=== PATIENT | female | born 1985 | race Two or more races ===

== ENCOUNTER 2020-02-15 16:14 | Emergency (ER) | payer MEDICAID, OTHER ==
[~2020-02-15] VITALS: Ht 154.9 cm; Wt 83.9 kg
[2020-02-15 16:48] LABS: Basophils # (auto) 0.1 10 ^3/uL (0-0.2); Basophils % (auto) 0.7 % (0.0-2.0); Eosinophils # (auto) 0.3 10 ^3/uL (0-0.8); Eosinophils % (auto) 3.1 % (0.0-7.0); Hematocrit 42.7 % (36.0-46.0); Hemoglobin 14.5 g/dL (12.2-16.2); Lymphocytes % (auto) 21.1 % (10.0-50.0); Mean Corpuscular Hemoglobin 32.6 pg (28.0-32.0); Mean Corpuscular Volume 95.9 fL (80.0-100.0); Monocytes # (auto) 0.9 10 ^3/uL (0-1.3); Monocytes % (auto) 9.3 % (0.0-12.0); Neutrophils # (auto) 6.3 10 ^3/uL (1.6-8.6); Neutrophils % (auto) 65.8 % (37.0-80.0); Nucleated Red Blood Cells % 0.1 %; Platelet Count (auto) 339 10^3/uL (140-450); Red Blood Cells 4.45 10^6/uL (4.0-5.20); Red Cell Distribution Width 13.4 % (11.8-14.3); White Blood Cell 9.6 10^3/uL (4.4-10.8)
[2020-02-15 17:05] LABS: Albumin 3.5 g/dL (3.4-5.0); BUN/Creatinine Ratio 14.9; Calcium 8.8 mg/dL (8.5-10.1); Magnesium 2.1 mg/dL (1.6-2.6); Potassium 3.8 mmol/L (3.5-5.1)
[2020-02-15 17:08] LABS: Bilirubin, Total 0.4 mg/dL (0.2-1.0); Total Protein 7.8 g/dL (6.4-8.2)
[2020-02-15 19:19] LABS: Urine Bacteria NONE SEEN /hpf (None Seen); Urine Blood Negative /uL (Negative); Urine Mucus FEW (None Seen); Urine Specific Gravity 1.029 (1.001-1.035); Urine WBC 2 /hpf (0 - 5)
[2020-02-15 19:39] VITALS: BP 120/66
== END 2020-02-15 20:07 | disposition home or self-care (01) ==
LOC: ER 16:14
DX: O26.891 Other specified pregnancy related conditions, first trimester (principal); R10.9 Unspecified abdominal pain; Z3A.01 Less than 8 weeks gestation of pregnancy
CPT/HCPCS: 36415; 76801; 76817; 80053; 81001; 82150; 83690; 83735; 84702; 85025

== ENCOUNTER 2020-03-30 18:37 | Emergency (ER) | payer MEDICAID ==
[~2020-03-30] VITALS: Ht 154.9 cm; Wt 83.5 kg
[2020-03-30 18:51] VITALS: BP 115/75
[2020-03-30 19:40] LABS: Basophils # (auto) 0.1 10 ^3/uL (0-0.2); Basophils % (auto) 0.7 % (0.0-2.0); Eosinophils # (auto) 0.1 10 ^3/uL (0-0.8); Eosinophils % (auto) 1.1 % (0.0-7.0); Hematocrit 42.2 % (36.0-46.0); Hemoglobin 14.5 g/dL (12.2-16.2); Lymphocytes # (auto) 1.9 10 ^3/uL (0.4-5.4); Lymphocytes % (auto) 22.1 % (10.0-50.0); Mean Corpuscular Hemoglobin 32.7 pg (28.0-32.0); Mean Corpuscular Hgb Conc. 34.3 g/dL (32.0-36.0); Mean Corpuscular Volume 95.3 fL (80.0-100.0); Monocytes # (auto) 0.8 10 ^3/uL (0-1.3); Monocytes % (auto) 8.6 % (0.0-12.0); Neutrophils # (auto) 5.9 10 ^3/uL (1.6-8.6); Neutrophils % (auto) 67.5 % (37.0-80.0); Nucleated Red Blood Cells % 0.1 %; Platelet Count (auto) 272 10^3/uL (140-450); Red Blood Cells 4.43 10^6/uL (4.0-5.20); Red Cell Distribution Width 12.5 % (11.8-14.3); White Blood Cell 8.8 10^3/uL (4.4-10.8)
[2020-03-30 19:56] LABS: Albumin 2.9 g/dL (3.4-5.0); Calcium 8.8 mg/dL (8.5-10.1); Potassium 3.3 mmol/L (3.5-5.1)
[2020-03-30 19:59] LABS: BUN/Creatinine Ratio 12.9; Bilirubin, Total 0.2 mg/dL (0.2-1.0); Total Protein 7.1 g/dL (6.4-8.2)
[2020-03-30 21:12] LABS: Urine Bacteria NONE SEEN /hpf (None Seen); Urine Blood TRACE /uL (Negative); Urine Mucus FEW (None Seen); Urine Specific Gravity 1.023 (1.001-1.035); Urine WBC 3 /hpf (0 - 5)
== END 2020-03-31 00:13 | disposition left against medical advice (07) ==
LOC: ER 18:37
DX: O46.90 Antepartum hemorrhage, unspecified, unspecified trimester (principal); Z53.21 Procedure and treatment not carried out due to patient leaving prior to being seen by health care provider
CPT/HCPCS: 36415; 80053; 81001; 84702; 85025

== ENCOUNTER 2020-03-31 13:16 | Emergency (ER) | payer MEDICAID ==
[~2020-03-31] VITALS: Ht 154.9 cm; Wt 83.5 kg
[2020-03-31 13:32] VITALS: BP 119/74
== END 2020-03-31 15:32 | disposition home or self-care (01) ==
LOC: ER 13:16
DX: O20.0 Threatened abortion (principal); Z3A.11 11 weeks gestation of pregnancy
CPT/HCPCS: 76801

== ENCOUNTER 2020-09-09 20:28 | Observation (INO) | payer MEDICAID ==
[2020-09-09] MEDS ORDERED: diphenhdrAMINE HCL 25 MG CAP PO ONE (22:00)
[2020-09-09 22:46] LABS: Urine Bacteria NONE SEEN /hpf (None Seen); Urine Blood Negative /uL (Negative); Urine Specific Gravity 1.024 (1.001-1.035); Urine WBC 16 /hpf (0 - 5)
[2020-09-09 22:56] LABS: Alcohol, Urine < 3.0 mg/dL (0-10); Amphetamine Screen, Urine NEGATIVE (NEGATIVE); Barbiturate Scree,Urine NEGATIVE (NEGATIVE); Benzodiazephine Screen, Urine NEGATIVE (NEGATIVE); Cannabinoid Screen, Urine NEGATIVE (NEGATIVE); Cocaine Screen, Urine NEGATIVE (NEGATIVE); Opiate Scree,Urine NEGATIVE (NEGATIVE); Phencyclidine Screen, Urine NEGATIVE (NEGATIVE)
== END 2020-09-10 | disposition home or self-care (01) ==
LOC: LDRP 20:28
PROVIDERS: ADMIT Obstetrics & Gynecology; ATTEND Obstetrics & Gynecology
DX: O26.893 Other specified pregnancy related conditions, third trimester (principal); R07.89 Other chest pain; Z20.828 Contact with and (suspected) exposure to other viral communicable diseases; O99.891 Other specified diseases and conditions complicating pregnancy; M54.6 Pain in thoracic spine; R51.9 Headache, unspecified; R42 Dizziness and giddiness; R20.0 Anesthesia of skin; R82.998 Other abnormal findings in urine; O99.343 Other mental disorders complicating pregnancy, third trimester; F41.9 Anxiety disorder, unspecified; O09.523 Supervision of elderly multigravida, third trimester; Z3A.34 34 weeks gestation of pregnancy
CPT/HCPCS: 36415; 59025; 76805; 80307; 81001; 81002; 82962; 87426; 94760; G0378; U0003

== ENCOUNTER 2020-09-19 15:55 | Observation (INO) | payer MEDICAID ==
[2020-09-19 16:55] LABS: Urine Bacteria FEW /hpf (None Seen); Urine Blood Negative /uL (Negative); Urine Mucus FEW (None Seen); Urine Specific Gravity 1.031 (1.001-1.035); Urine WBC 26 /hpf (0 - 5)
[2020-09-19 17:09] LABS: Amphetamine Screen, Urine NEGATIVE (NEGATIVE); Barbiturate Scree,Urine NEGATIVE (NEGATIVE); Benzodiazephine Screen, Urine NEGATIVE (NEGATIVE); Cannabinoid Screen, Urine NEGATIVE (NEGATIVE); Cocaine Screen, Urine NEGATIVE (NEGATIVE); Opiate Scree,Urine NEGATIVE (NEGATIVE); Phencyclidine Screen, Urine NEGATIVE (NEGATIVE)
[2020-09-19 17:20] LABS: Basophils # (auto) 0 10 ^3/uL (0-0.2); Basophils % (auto) 0.3 % (0.0-2.0); Eosinophils # (auto) 0.1 10 ^3/uL (0-0.8); Eosinophils % (auto) 0.7 % (0.0-7.0); Hematocrit 38.2 % (36.0-46.0); Hemoglobin 13.1 g/dL (12.2-16.2); Lymphocytes # (auto) 1.8 10 ^3/uL (0.4-5.4); Lymphocytes % (auto) 17.8 % (10.0-50.0); Mean Corpuscular Hemoglobin 30.1 pg (28.0-32.0); Mean Corpuscular Hgb Conc. 34.2 g/dL (32.0-36.0); Mean Corpuscular Volume 87.9 fL (80.0-100.0); Monocytes # (auto) 0.9 10 ^3/uL (0-1.3); Monocytes % (auto) 8.9 % (0.0-12.0); Neutrophils # (auto) 7.4 10 ^3/uL (1.6-8.6); Neutrophils % (auto) 72.3 % (37.0-80.0); Nucleated Red Blood Cells % 0.1 %; Platelet Count (auto) 266 10^3/uL (140-450); Red Blood Cells 4.34 10^6/uL (4.0-5.20); White Blood Cell 10.2 10^3/uL (4.4-10.8)
[2020-09-19] MEDS ORDERED: PREN-96 PO (17:29)
[2020-09-19 17:34] LABS: INR 0.95 (0.9-1.15); Partial Thromboplastin Time 23.8 sec (23.0-31.2)
[2020-09-19 17:37] LABS: Albumin 2.5 g/dL (3.4-5.0); Potassium 4.2 mmol/L (3.5-5.1)
[2020-09-19 17:40] LABS: Bilirubin, Total 0.2 mg/dL (0.2-1.0); Total Protein 7.3 g/dL (6.4-8.2); Uric Acid 4.1 mg/dL (2.6-6.0)
== END 2020-09-19 19:30 | disposition home or self-care (01) ==
LOC: LDRP 15:55
PROVIDERS: ADMIT Obstetrics & Gynecology; ATTEND Obstetrics & Gynecology
DX: O13.3 Gestational [pregnancy-induced] hypertension without significant proteinuria, third trimester (principal); Z3A.36 36 weeks gestation of pregnancy; Z79.899 Other long term (current) drug therapy
CPT/HCPCS: 36415; 59025; 76818; 80053; 80307; 81001; 81002; 83036; 84550; 85025; 85610; 85730; 86592; G0378

== ENCOUNTER 2020-09-21 11:55 | Observation (INO) | payer MEDICAID ==
[~2020-09-21] VITALS: Ht 154.9 cm; Wt 88.5 kg
[~2020-09-21 11:55] MED LIST: PREN-96 PO
[2020-09-21 13:32] LABS: Protein, Urine 25.5 mg/dL (0.0-11.9)
[2020-09-21 13:36] LABS: Protein, Urine 25.4 mg/dL (0.0-11.9)
[2020-09-21 13:52] LABS: 24 Hr. Total Protein, Urine 395.2 mg/24 Hr (<149.1)
[2020-09-21] MEDS ORDERED: LABE100T4 PO (14:12)
== END 2020-09-21 14:15 | disposition home or self-care (01) ==
LOC: LDRP 11:55
PROVIDERS: ADMIT Obstetrics & Gynecology; ATTEND Obstetrics & Gynecology
DX: O13.3 Gestational [pregnancy-induced] hypertension without significant proteinuria, third trimester (principal); Z3A.36 36 weeks gestation of pregnancy
CPT/HCPCS: 59025; 76818; 81002; 82570; 84156; G0378

== ENCOUNTER 2020-09-26 13:55 | Observation (INO) | payer MEDICAID ==
[~2020-09-26 13:55] MED LIST changes: +LABE100T4 PO
[2020-09-26] MEDS ORDERED: HYDR-4924 PO (14:49)
== END 2020-09-26 17:15 | disposition home or self-care (01) ==
LOC: LDRP 13:55
PROVIDERS: ADMIT Specialist; ATTEND Specialist
DX: O13.3 Gestational [pregnancy-induced] hypertension without significant proteinuria, third trimester (principal); O34.63 Maternal care for abnormality of vagina, third trimester; N89.8 Other specified noninflammatory disorders of vagina; O26.893 Other specified pregnancy related conditions, third trimester; R51.9 Headache, unspecified; Z3A.37 37 weeks gestation of pregnancy
CPT/HCPCS: 59025; 76818; 81002; G0378

== ENCOUNTER 2020-09-29 13:39 | Observation (INO) | payer MEDICAID ==
[~2020-09-29 13:39] MED LIST changes: +HYDR-4924 PO
== END 2020-09-29 17:56 | disposition home or self-care (01) ==
LOC: OB 13:39 → LDRP 16:20
PROVIDERS: ADMIT Obstetrics & Gynecology; ATTEND Obstetrics & Gynecology
DX: O32.1XX0 Maternal care for breech presentation, not applicable or unspecified (principal); O62.9 Abnormality of forces of labor, unspecified; O24.419 Gestational diabetes mellitus in pregnancy, unspecified control; O13.3 Gestational [pregnancy-induced] hypertension without significant proteinuria, third trimester; Z3A.37 37 weeks gestation of pregnancy; Z91.19 Patient's noncompliance with other medical treatment and regimen
CPT/HCPCS: 59025; 76805; 76818; 81002; 82948; 82962; G0378

== ENCOUNTER 2020-10-03 13:20 | Observation (INO) | payer MEDICAID | END 2020-10-03 15:05 | disposition home or self-care (01) | LOC: LDRP 13:20 | PROVIDERS: ADMIT Obstetrics & Gynecology; ATTEND Obstetrics & Gynecology | DX: O13.3 Gestational [pregnancy-induced] hypertension without significant proteinuria, third trimester (principal); O24.913 Unspecified diabetes mellitus in pregnancy, third trimester; E11.9 Type 2 diabetes mellitus without complications; Z91.19 Patient's noncompliance with other medical treatment and regimen; Z3A.38 38 weeks gestation of pregnancy | CPT/HCPCS: 59025; 76818; 81002; 82948; 82962; G0378 ==

== ENCOUNTER 2020-10-06 10:57 | Observation (INO) | payer MEDICAID | END 2020-10-06 14:18 | disposition home or self-care (01) | LOC: LDRP 10:57 | PROVIDERS: ADMIT Obstetrics & Gynecology; ATTEND Obstetrics & Gynecology | DX: O13.9 Gestational [pregnancy-induced] hypertension without significant proteinuria, unspecified trimester (principal); O26.893 Other specified pregnancy related conditions, third trimester; R42 Dizziness and giddiness; Z3A.38 38 weeks gestation of pregnancy | CPT/HCPCS: 59025; 76818; 81002; 82948; 82962; G0378 ==

== ENCOUNTER 2021-06-18 16:54 | Emergency (ER) | payer MEDICAID ==
[~2021-06-18] VITALS: Ht 154.9 cm; Wt 88.9 kg
[2021-06-18 20:00] VITALS: BP 123/79
== END 2021-06-18 20:12 | disposition home or self-care (01) ==
LOC: ER 16:54
DX: O23.42 Unspecified infection of urinary tract in pregnancy, second trimester (principal); N39.0 Urinary tract infection, site not specified; R05.9 Cough, unspecified; R09.81 Nasal congestion; R53.83 Other fatigue; M79.18 Myalgia, other site; R50.9 Fever, unspecified; J02.9 Acute pharyngitis, unspecified; F41.9 Anxiety disorder, unspecified; F32.9 Major depressive disorder, single episode, unspecified; Z3A.18 18 weeks gestation of pregnancy; Z79.899 Other long term (current) drug therapy

== ENCOUNTER 2021-08-07 20:48 | Emergency (ER) | payer MEDICAID ==
[~2021-08-07] VITALS: Ht 154.9 cm; Wt 91.2 kg
[2021-08-07 20:59] VITALS: BP 117/79
== END 2021-08-08 01:31 | disposition left against medical advice (07) ==
LOC: ER 20:50
DX: R05.9 Cough, unspecified (principal); Z53.21 Procedure and treatment not carried out due to patient leaving prior to being seen by health care provider; Z90.49 Acquired absence of other specified parts of digestive tract
CPT/HCPCS: 36415; 87426

== ENCOUNTER 2021-08-11 14:30 | Emergency (ER) | payer MEDICAID ==
[~2021-08-11] VITALS: Ht 154.9 cm; Wt 89.8 kg
[2021-08-11 15:09] VITALS: BP 128/80
== END 2021-08-11 15:20 | disposition home or self-care (01) ==
LOC: ER 14:30
DX: O26.892 Other specified pregnancy related conditions, second trimester (principal); J20.9 Acute bronchitis, unspecified; J01.90 Acute sinusitis, unspecified; Z3A.26 26 weeks gestation of pregnancy

== ENCOUNTER 2021-09-19 15:36 | Observation (INO) | payer MEDICAID | END 2021-09-19 19:42 | disposition home or self-care (01) | LOC: LDRP 15:36 | PROVIDERS: ADMIT Obstetrics & Gynecology; ATTEND Obstetrics & Gynecology | DX: O26.893 Other specified pregnancy related conditions, third trimester (principal); R10.32 Left lower quadrant pain; R51.9 Headache, unspecified; O24.419 Gestational diabetes mellitus in pregnancy, unspecified control; O36.8130 Decreased fetal movements, third trimester, not applicable or unspecified; Z3A.31 31 weeks gestation of pregnancy | CPT/HCPCS: 59025; 81002; 82948; 82962; 94760; G0378 ==

== ENCOUNTER 2023-07-15 09:57 | Emergency (ER) | payer MEDICAID ==
[~2023-07-15] VITALS: Ht 157.5 cm; Wt 69.7 kg
[~2023-07-15 09:57] MED LIST changes: +CIPR-173 PO; +PANT40TA2 PO
[2023-07-15 10:40] LABS: Basophils # (auto) 0 10 ^3/uL (0-0.2); Basophils % (auto) 0.3 % (0.0-2.0); Eosinophils # (auto) 0.1 10 ^3/uL (0-0.8); Eosinophils % (auto) 0.8 % (0.0-7.0); Hematocrit 43.6 % (36.0-46.0); Lymphocytes # (auto) 1.6 10 ^3/uL (0.4-5.4); Mean Corpuscular Hemoglobin 32.9 pg (28.0-32.0); Mean Corpuscular Hgb Conc. 34.4 g/dL (32.0-36.0); Mean Corpuscular Volume 95.8 fL (80.0-100.0); Monocytes # (auto) 0.6 10 ^3/uL (0-1.3); Monocytes % (auto) 6.2 % (0.0-12.0); Neutrophils # (auto) 6.9 10 ^3/uL (1.6-8.6); Neutrophils % (auto) 75.7 % (37.0-80.0); Nucleated Red Blood Cells % 0.1 %; Red Blood Cells 4.55 10^6/uL (4.0-5.20); Red Cell Distribution Width 12.6 % (11.8-14.3); White Blood Cell 9.2 10^3/uL (4.4-10.8)
[2023-07-15 10:48] LABS: Urine Bacteria NONE SEEN /hpf (None Seen); Urine Blood 1+ /uL (Negative); Urine Clarity Clear (Clear); Urine Color Yellow (Yellow); Urine Hyaline Cast FEW /lpf (0 - 2); Urine Mucus FEW (None Seen); Urine Protein, UAD TRACE (Negative); Urine Specific Gravity 1.036 (1.001-1.035); Urine WBC 4 /hpf (0 - 5); Urine pH 5.5 (5.0-8.0)
[2023-07-15 11:29] LABS: Alanine Aminotransferase 309 U/L (7-40); Albumin 4.3 g/dL (3.2-4.8); Alkaline Phosphatase 194 U/L (46-116); Anion Gap 8 (5-15); Aspartate Aminotransferase 253 U/L (13-40); BUN/Creatinine Ratio 11.3 (10.0-20.0); Blood Urea Nitrogen 8 mg/dL (9-23); Calcium 9.3 mg/dL (8.5-10.1); Carbon Dioxide 25 mmol/L (20-30); Chloride 105 mmol/L (98-107); Glucose 120 mg/dL (74-106); Potassium 3.4 mmol/L (3.5-5.1); Sodium 138 mmol/L (136-145); Total Protein 7.1 g/dL (5.7-8.2)
[2023-07-15 16:07] LABS: Lipase 1043 U/L (12-53)
[2023-07-15 16:39] LABS: Amylase 591 U/L (30-118)
[2023-07-15] MEDS ORDERED: fentaNYL CITRATE 100 MCG/2 ML VL IV ONE (22:15)
[2023-07-15] MEDS ORDERED: ONDANSETRON HCL 4 MG/2 ML VIAL IV ONE (22:15)
[2023-07-15 23:00] VITALS: PULSE 76; RESP 20; O2SAT 97
[2023-07-16 02:05] VITALS: TEMP 98.3; O2SAT 97
[2023-07-16 02:14] VITALS: BP 117/72; PULSE 76; RESP 18
[2023-07-16] MEDS ORDERED: fentaNYL CITRATE 100 MCG/2 ML VL IV ONE (02:15)
[2023-07-16] MEDS ORDERED: ONDANSETRON HCL 4 MG/2 ML VIAL IV ONE (02:15)
== END 2023-07-16 02:30 | disposition short-term general hospital (02) ==
LOC: ER 09:57
DX: K82.8 Other specified diseases of gallbladder (principal); F41.9 Anxiety disorder, unspecified; F32.9 Major depressive disorder, single episode, unspecified; Z79.899 Other long term (current) drug therapy
CPT/HCPCS: 36415; 71045; 74181; 76705; 80053; 81001; 82150; 83690; 85025; 96374; 96375; 96376; 99285; J2405; J3010

== ENCOUNTER 2024-04-07 12:51 | Emergency (ER) | payer BC, MEDICAID ==
[~2024-04-07] VITALS: Ht 154.9 cm; Wt 67.9 kg
[~2024-04-07 12:51] MED LIST changes: -LABE100T4 PO; +LABE100T7 PO
[2024-04-07 13:38] VITALS: BP 126/78; PULSE 87; RESP 16; TEMP 98.7; O2SAT 97
[2024-04-07 14:17] LABS: COVID19 ANTIGEN SOFIA FIA POSITIVE (NEGATIVE)
[2024-04-07] MEDS: KETOROLAC TROMETH 30 MG/ML 1ML VIAL IM ONE (14:27)
[2024-04-07] MEDS: DexAMETHasone SOD PHOS 10MG/1ML VIAL INJ IM ONE (14:28)
[2024-04-07] MEDS ORDERED: IBUP-1454 PO (14:45)
[2024-04-07] MEDS ORDERED: ACET500T58 PO (14:45)
== END 2024-04-07 14:52 | disposition home or self-care (01) ==
LOC: ER 12:51
DX: U07.1 COVID-19 (principal)
CPT/HCPCS: 36415; 87426; 96372; 99284; J1100; J1885

== ENCOUNTER 2024-04-21 17:54 | Emergency (ER) | payer BC, MEDICAID ==
[~2024-04-21] VITALS: Ht 157.5 cm; Wt 68.1 kg
[~2024-04-21 17:54] MED LIST changes: +ACET500T58 PO; +IBUP-1454 PO
[2024-04-21 17:56] VITALS: BP 135/94; RESP 18; O2SAT 100
[2024-04-21 18:08] VITALS: PULSE 69
[2024-04-21] MEDS ORDERED: SODIUM CHLORIDE 0.9% 1,000 ML IV ONE (18:15)
[2024-04-21] MEDS ORDERED: ACETAMINOPHEN 325 MG TAB PO ONE (18:15)
[2024-04-21] MEDS ORDERED: METOCLOPRAMIDE HCL 5MG/ml INJ 2ml VIAL IV ONE (18:15)
[2024-04-21] MEDS ORDERED: KETOROLAC TROMETH 30 MG/ML 1ML VIAL IV ONE (18:15)
== END 2024-04-22 02:35 | disposition home or self-care (01) ==
LOC: ER 17:54 → EDBD 17:54 → ER 04-22 02:35
DX: G43.909 Migraine, unspecified, not intractable, without status migrainosus (principal); B34.9 Viral infection, unspecified; E11.9 Type 2 diabetes mellitus without complications; I10 Essential (primary) hypertension
CPT/HCPCS: 71046; 93005

== ENCOUNTER 2024-11-21 19:00 | Emergency (ER) | payer BC, MEDICAID ==
[~2024-11-21] VITALS: Ht 157.5 cm; Wt 75.9 kg
[2024-11-21] MEDS: HYDROcodone-ACET 10/325MG TAB PO ONE (21:05)
[2024-11-21] MEDS: KETOROLAC TROMETH 60MG/2ML VIAL IM ONE (21:06)
--- NOTE | 2024-11-21 21:50 | DVH ---
EXAMINATIONS: 3 views of the left knee CLINICAL HISTORY: Trauma/twist COMPARISON: None Findings and impression: Questionable small suprapatellar effusion which may be projectional. Otherwise no grossly displaced fractures, dislocations or bony destructive changes are evident on the provided views. If symptoms persist, follow-up MRI may be considered to further evaluate.
[2024-11-21 21:57] VITALS: BP 116/78; PULSE 73; RESP 18; TEMP 98.8; O2SAT 99
[2024-11-21] MEDS ORDERED: IBUP-1455 PO (22:15)
[2024-11-21] MEDS ORDERED: HYDR-4902 PO (22:15)
--- NOTE | 2024-11-21 22:16 | ED.PDOC ---
Musculoskeletal HPI Comments This patient is a 39-year-old female who arrives the ED today for evaluation of left knee pain concerns that have become significant since yesterday. Patient states it a week ago she twisted her left knee. Subsequent to that event, patient was able to ambulate with just some mild discomfort. Patient states last night she was drinking excessively when she twisted her left knee again. This time, the patient states she heard a pop. Patient has difficulty bearing weight. Patient denies any fever nausea or vomiting. Vital signs were stable on arrival. Chief Complaint: Lower Extremity Time Seen by MD: 20:19 Primary Care Provider: UNKNOWN Reviewed Notes: Nurses Notes Allergies: Coded Allergies: NO KNOWN ALLERGIES (Unverified , 02/15/20) Home Meds Active Scripts Acetaminophen (Acetaminophen) 500 Mg Tab, 500 MG PO QIDPRN for 10 Days, #40 TAB 0 Refills Prov:SIMONE TIERNEY NP 04/07/24 Ibuprofen (Ibuprofen) 600 Mg Tab, 1 TAB PO TID for 10 Days, #30 TAB 0 Refills Prov:SIMONE TIERNEY NP 04/07/24 Ciprofloxacin Hcl (Cipro) 500 Mg Tab, 1 TAB PO BID, #14 TAB Prov:CONOR RENDON MD 02/28/23 Pantoprazole Sodium Sesquihydr (Protonix) 40 Mg Tab, 40 MG PO DAILY, #30 TAB Prov:CONOR RENDON MD 02/28/23 Reported Medications Hydroxyzine HCl (Hydroxyzine Hydrochloride) 25 Mg Tab, 25 MG PO BID PRN for ANXIETY, TAB 09/26/20 Labetalol Hcl (Labetalol Hcl) 100 Mg Tab, 1 TAB PO BID, #60 TAB 3 Refills 09/21/20 Vit W/ Ferrous Fumara ( One Daily) Daily Tab, 1 TAB PO DAILY, #90 TAB 3 Refills 09/19/20 Information Source: Patient Mode of Arrival: Ambulatory Location: Left Extremity Location: Knee Timing: Days Prehospital treatment: None Severity: Moderate Able to Move Extremity: Yes Bear Weight: Limited Pain: Moderate Hand Dominance: Right Mechanism: Twisting Circumstances: Accident Onset of Symptoms: After Trauma Symptoms: Swelling, Pain DVT Risk Factors: NONE Past Medical History PAST MEDICAL HISTORY: Anxiety, Depression, DM, HTN Surgical History: Denies all surgeries NURSE PRACTITIONER HOSPITALIST History: No Pertinent NURSE PRACTITIONER HOSPITALIST History Family History Family History: Reviewed,noncontributory to illness, No family hx of Cancer, No family hx of DM, No family hx of Heart zaynab, No family hx of HTN, No family hx ofKidney zaynab, No family hx of Liver zaynab, No family hx of Lung zaynab, No family hx of Stroke Social History Smoker: Non-Smoker Alcohol: Heavy Drugs: Denies Drug Use Lives In: Home Constitutional: denies: chills, diaphoresis, fatigue, fever, malaise, sweats, weakness, others EENTM: denies: blurred vision, double vision, ear bleeding, ear discharge, ear drainage, ear pain, ear ringing, eye pain, eye redness, hearing loss, mouth pain, mouth swelling, nasal discharge, nose bleeding, nose congestion, nose pain, photophobia, tearing, throat pain, throat swelling, voice changes, others Respiratory: denies: cough, hemoptysis, orthopnea, SOB at rest, shortness of breath, SOB with excertion, stridor, wheezing, others Cardiovascular: denies: chest pain, dizzy spells, diaphoresis, Dyspnea on exertion, edema, irregular heart beat, left arm pain, lightheadedness, palpitations, PND, syncope, others Gastrointestinal: denies: abdomen distended, abdominal pain, blood streaked bowels, constipated, diarrhea, dysphagia, difficulty swallowing, hematemesis, melena, nausea, poor appetite, poor fluid intake, rectal bleeding, rectal pain, vomiting, others Genitourinary: denies: abnormal vagina bleeding, burning, dyspareunia, dysuria, flank pain, frequency, hematuria, incontinence, pain, , vagina discharge, urgency, others Neurological: denies: dizziness, fainting, headache, left sided numbness, left sided weakness, numbness, paresthesia, pre-existing deficit, right sided numbness, right sided weakness, seizure, speech problems, tingling, tremors, weakness, others Musculoskeletal: reports: others (Left knee pain); denies: back pain, gout, joint pain, joint swelling, muscle pain, muscle stiffness, neck pain Integumetry: denies: bruises, change in color, change in hair/nails, dryness, laceration, lesions, lumps, rash, wounds, others Allergic/Immunocompromised: denies: Difficulty Healing, Frequent Infections, Hives, Itching, others Hematologic/Lymphatic: denies: anemia, blood clots, easy bleeding, easy bruising, swollen glands, others Endocrine: denies: excessive hunger, excessive sweating, excessive thirst, excessive urination, flushing, intolerance to cold, intolerance to heat, unexplained weight gain, unexplained weight loss, others Psychiatric: denies: anxiety, bipolar disorder, depression, hopeless, panic disorder, schizophrenia, sleepless, suicidal, others Physical Exam General Appearance: Moderate Distress (Due to left knee pain concerns), Obese HEENT: Normal ENT Inspection, Pharynx Normal, TMs Normal Neck: Full Range of Motion, Non-Tender, Normal, Normal Inspection Respiratory: Chest Non-Tender, Lungs Clear, No Accessory Muscle Use, No Respiratory Distress, Normal Breath Sounds Cardiovascular: No Edema, No JVD, No Murmur, No Gallop, Normal Peripheral Pulses, Regular Rate/Rhythm Breast Exam: Deferred Gastrointestinal: No Organomegaly, Non Tender, No Pulsatile Mass, Normal Bowel Sounds, Soft Genitalia: Deferred Pelvic: Deferred Rectal: Deferred Extremities: Other (Diffuse tenderness to palpation throughout the anterior aspect of the left knee, significantly more over the tibial tuberosity. Mild edema noted. Negative drawer sign. Moderate reduced range of motion. Distal neurovascularly intact.) Neurologic: Alert, No Motor Deficits, Normal Affect, Normal Mood, No Sensory Deficits Cerebellar Function: Normal Reflexes: Normal Skin: Dry, Normal Color, Warm Lymphatic: No Adenopathy Was a procedure done? Was a procedure done?: No Differential Diagnosis EXT Differential Diagnosis: Fracture, Sprain, Contusion, Strain X-Ray, Labs, Meds, VS Vital Signs Date Time Temp Pulse Resp B/P (MAP) Pulse Ox O2 Delivery O2 Flow Rate FiO2 11/21/24 21:57 73 18 99 Room Air 11/21/24 21:57 98.8 73 18 116/78 (91) 99 98.8 11/21/24 19:18 98.8 79 16 114/87 (96) 98 98.8 Current Medications Medications (Trade) Dose Ordered Sig/Jonatan Route Start Time Stop Time Status Last Admin Ketorolac Tromethamine (Toradol Injection) 30 mg ONCE ONCE IM 11/21/24 20:45 11/21/24 20:46 DC 11/21/24 21:06 Acetaminophen/ Hydrocodone Bitart (Bennett 10/325MG Tab) 1 tab ONCE ONCE PO 11/21/24 20:45 11/21/24 20:46 DC 11/21/24 21:05 X-Ray, Labs, Meds, VS Comment All studies performed the ED were evaluated by me personally. Imaging studies were unremarkable for any acute fractures. Patient seems to have sustained an internal knee concern. Patient will be sent home with a an Brando wrap and crutches and advised to utilize medication as needed as well as ice therapy. If symptoms continue, patient will need to follow up with the primary care provider for continued evaluation and possible MRI. Time of 1ST Reevaluation: 22:14 Reevaluation 1ST: Improved Consultation: PCP Patient Education/Counseling: Diagnosis, Treatment Family Education/Counseling: Diagnosis, Treatment Departure 1 Departure Time of Disposition: 22:14 Impression: Primary Impression: Left knee sprain Disposition: HOME / SELF CARE / HOMELESS Condition: Stable Additional Instructions: Advise utilizing pain medication as needed as well as Brando wrap and crutches as long as they aid in the healing process. If symptoms last more than a week, patient will need to follow up with primary care provider for possible MRI evaluation. e-Prescriptions Hydrocodone-Acetaminophen (Hydrocodone Bitartrate/AC 5-325 mg) 1 Tab Tab 1 TAB PO Q6HP PRN, #15 TAB Prov: GABRIELE BECKER PAC 11/21/24 Ibuprofen Micronized (Ibuprofen) 800 Mg Tab 800 MG PO Q8HP PRN, #20 TAB Prov: GABRIELE BECKER PAC 11/21/24 Discharged With: Self, Friend Critical Care Note Critical Care Time?: No Stability Stability form required: No Heart Score Heart Score: Heart Score Response (Comments) Value History N/A 0 EKG N/A 0 Age N/A 0 Risk Factors N/A 0 Troponin N/A 0 Total 0 GABRIELE BECKER PAC Nov 21, 2024 22:16
== END 2024-11-21 22:29 | disposition home or self-care (01) ==
LOC: ER 19:02
DX: S83.8X2A Sprain of other specified parts of left knee, initial encounter (principal); I10 Essential (primary) hypertension; E11.9 Type 2 diabetes mellitus without complications; F41.9 Anxiety disorder, unspecified; Z79.899 Other long term (current) drug therapy; X50.1XXA Overexertion from prolonged static or awkward postures, initial encounter; Y93.89 Activity, other specified; Y92.89 Other specified places as the place of occurrence of the external cause; Y99.8 Other external cause status
CPT/HCPCS: 73562; 96372; 99283; J1885